=== PATIENT | male | born 1985 | race African-American/Black ===

== ENCOUNTER 2016-10-22 12:08 | Day surgery (SDC) | payer MEDICAID ==
[~2016-10-22 12:08] MED LIST: ceFAZolin 2 GM/DEXTROSE 100 ML IV ONE
[2016-10-22] MEDS ORDERED: CEFAZOLIN 2 GM/DEXTROSE/100 ML BAG IV ONE (12:21)
[2016-10-22] MEDS ORDERED: LIDOCAINE 1% 5 ML SDV ONE (12:21)
[2016-10-22] MEDS ORDERED: BUPIVACAINE 0.5% 30 ML SDV ONE (12:59)
[2016-10-22] MEDS ORDERED: LIDOCAINE 1% 5 ML SDV ID PRN (13:04)
[2016-10-22] MEDS ORDERED: LR 1,000 ML IV ONE (13:04)
[2016-10-22] MEDS ORDERED: MIDAZOLAM 2 MG/2 ML VIAL ONE (13:13)
[2016-10-22] MEDS ORDERED: PROPOFOL 200 MG/20 ML VIAL ONE ×7 (13:23→15:13)
[2016-10-22] MEDS ORDERED: fentaNYL 100 MCG/2 ML INJ ONE ×2 (13:23→13:38)
[2016-10-22] MEDS ORDERED: LIDOCAINE 2% 5 ML SDV ONE (13:31)
[2016-10-22] MEDS ORDERED: LIDOCAINE 1% 30 ML SDV ONE (13:42)
--- NOTE | 2016-10-22 17:28 | GOP ---
[f rep st] OPERATIVE REPORT DATE OF OPERATION: SURGEON: Nicole Edgar MD PREOPERATIVE DIAGNOSIS: Frostbite with necrosis of left 2nd and 3rd digits. POSTOPERATIVE DIAGNOSIS: Frostbite with necrosis of left 2nd and 3rd digits. PROCEDURE PERFORMED: Partial amputations of the 2nd and 3rd digits. FINDINGS: Necrotic soft tissue and bone to the proximal mid phalanx of both 2nd and 3rd left digits. SPECIMENS: Tissue from 2nd and 3rd left digits sent for Gram stain and culture. ESTIMATED BLOOD LOSS: 30 mL. INDICATIONS: The patient is a 31-year-old man who has suffered a 2nd episode of frostbite involving bilateral fingers and his nose. He was noted to have necrosis of the 2nd and 3rd left digits and opt ed for debridement of the necrotic tissue. DESCRIPTION OF PROCEDURE: After informed consent was obtained and preoperative antibiotics were admi nistered, the patient was taken to the operating room, placed in a supine position. Sedation was adm inistered after SCDs were placed to bilateral lower extremities. Digital blocks were performed of th e 2nd and 3rd left digits, after he was prepped and draped in a sterile fashion and after an appropri ate surgical pause, using local anesthetic. The necrotic soft tissue was debrided to the midportion of the middle phalanx, and a periosteal elevator was then used to expose the bone at these sites. Th e bone was transected using an oscillating saw. Bone wax was placed for hemostasis. Necrotic soft t issue was debrided, and V-Y skin flaps were created, using a 15 blade and the sutured in place using 3-0 Vicryl deep dermal sutures and 3-0 nylon vertical mattress sutures. Similarly, necrotic soft tis papito was debrided of the 3rd left phalanx as well, using a periosteal elevator to expose the bone of t he middle phalanx and transecting the bone using an oscillating saw. Bone wax was applied for hemost asis. Necrotic soft tissue was debrided. V-Y advancement flaps were marked and then incised using a 15 blade. These were closed using interrupted 3-0 Vicryl deep dermal sutures and 3-0 nylon vertical mattress sutures. The fingers were dressed with Xeroform and then a Matteo wrap. The patient was aw akened from sedation, and taken to the post anesthesia recovery unit. /[id number]/MODL
== END 2016-10-22 18:10 | disposition home or self-care (01) ==
LOC: FSGY 12:08
PROVIDERS: ATTEND Surgery
PROC: 0X6P0Z2 Detachment at Left Index Finger, Mid, Open Approach (ICD-10-PCS; principal; 2016-10-22 13:15)
PROC: 0X6R0Z2 Detachment at Left Middle Finger, Mid, Open Approach (ICD-10-PCS; principal; 2016-10-22 13:15)
DX: T33.532A Superficial frostbite of left finger(s), initial encounter (principal); F31.9 Bipolar disorder, unspecified; F17.210 Nicotine dependence, cigarettes, uncomplicated; X31.XXXA Exposure to excessive natural cold, initial encounter
CPT/HCPCS: J0690; J2250; J2704; J3010

== ENCOUNTER 2016-11-11 13:05 | Inpatient (IN) | payer MEDICAID ==
[2016-11-11] MEDS ORDERED: HYDROCODONE/APAP 5/325 TAB PO PRN (19:36)
[2016-11-11] MEDS ORDERED: TEMAZEPAM 15 MG CAP PO PRN (19:36)
[2016-11-11] MEDS: DOCUSATE SODIUM 100 MG CAP PO SCH (20:04)
[2016-11-11] MEDS: OXYCODONE/APAP 5/325 TAB PO PRN (20:04)
[2016-11-11] MEDS: traZODone 50 MG TAB PO SCH (20:05)
[2016-11-11] MEDS: FAMOTIDINE 20 MG TAB PO SCH (20:05)
[2016-11-11] MEDS: LITHIUM CARBONATE 300 MG CAP PO SCH (20:49)
[2016-11-12] MEDS: OXYCODONE/APAP 5/325 TAB PO PRN ×6 (00:04→22:23)
[2016-11-12] MEDS: OLANZapine DISINTEGR 10 MG TAB PO SCH (08:08)
[2016-11-12] MEDS: LITHIUM CARBONATE 300 MG CAP PO SCH ×2 (08:09→20:20)
[2016-11-12] MEDS: DOCUSATE SODIUM 100 MG CAP PO SCH ×2 (08:10→20:20)
[2016-11-12] MEDS: FAMOTIDINE 20 MG TAB PO SCH ×2 (08:10→20:20)
[2016-11-12] MEDS ORDERED: QUEtiapine FUMARATE 200 MG TAB PO SCH (09:00)
--- NOTE | 2016-11-12 09:06 | SOAPPROG ---
SOAP Progress Note Assessment/Plan: Assessment: wounds of left 2nd and 3rd digital stumps s/p partial amputations for frostbite c/b strep A soft tissue infection Plan: continue Dr. Henry perez with ID to see today crop adjuster to see regarding wound care will be very conservative with any further debridement to try and preserve finger length nonoperative daily wound care with goal of granulation and epithelialization of wounds 11/12/16 09:07 Subjective: pain controlled with Percocet tolerating a diet Objective: Vital Signs Temp Pulse Resp BP Pulse Ox 36.9 C 87 12 118/84 H 98 11/12/16 07:40 11/12/16 07:40 11/12/16 07:40 11/12/16 07:40 11/12/16 07:40 11/11/16 11/12/16 11/13/16 05:59 05:59 05:59 Intake Total 1000 Balance 1000 Physical Exam - Physical Exam General Appearance: alert Extremities: other (2nd and 3rd digital stump incisions open, surrounding skin without erythema) ICD10 Worksheet Patient Problems: Problems Problem Status Diagnosed Frostbite of both hands Acute Soft tissue infection Acute - ICD10 Problem Qualifiers (1) Frostbite of both hands (2) Soft tissue infection
--- NOTE | 2016-11-12 09:37 | GHP ---
[f rep st] HISTORY AND PHYSICAL DATE OF ADMISSION: 11/11/2016 HISTORY OF PRESENT ILLNESS: The patient is a 31-year-old man well known to me who is status post par tial amputations of the left 2nd and 3rd fingers at the mid phalanx for frostbite and associated Stre ptococcus group A soft tissue infection. He has had difficulty with regular followup wound care as nasim ibrahim has baseline psychiatric issues and is homeless. Last week he was unable to stay at the assisted in [place] and was exposed to cold again for 3 nights, noting that his stump incisions opened up. He al so reports drinking and using marijuana for pain because he ran out of pain medication. He was admit micha to the hospital for daily wound care, IV antibiotic therapy. PAST MEDICAL HISTORY: Frostbite and soft tissue infection of the 2nd and 3rd left digits as per Hist ory of Present Illness, homelessness, tobacco use, psychiatric issues although he cannot articulate w hat his exact diagnosis is. PAST SURGICAL HISTORY: Partial amputations of the 2nd and 3rd left fingers at the mid phalanges. MEDICATIONS: Augmentin 875 mg twice daily, [place] 1-2 tablets p.o. q.4 hours p.r.n. pain, Vistaril 50 mg 3 times daily, lithium 300 mg twice daily, Zyprexa 20 mg daily, Seroquel 400 mg daily, trazodone 50 mg nightly. ALLERGIES: He has no known drug allergies. SOCIAL HISTORY: He is homeless. He uses tobacco every day. He also reports using alcohol and marij uana recently for pain control. REVIEW OF SYSTEMS: He denied chest pain, shortness of breath, fevers. He complained of pain in his left 2nd and 3rd digits and open wounds there. PHYSICAL EXAM: GENERAL: He is alert, in no acute distress, nonjaundiced, nontoxic appearing. LUNGS : Clear to auscultation bilaterally. HEART: Regular rate and rhythm. EXTREMITIES: His stump inci sions of both the 2nd and 3rd left digits at the mid phalanx have come open without associated erythe ma in the surrounding skin. ASSESSMENT: Frostbite of the 2nd and 3rd left digits complicated by group A streptococcal soft tissu e infection complicated by continued cold exposure. PLAN: He will be admitted for daily wound care, IV antibiotic therapy, and Dr. Figueroa with Infectiou s Disease has been consulted regarding his open wounds and streptococcal soft tissue infection. /[id number]/MODL
--- NOTE | 2016-11-12 11:56 | PCMIDPN ---
Assessment/Plan: Wound dehiscence of 2nd and 3rd left digit s/p amputation for frostbite. No clear evidence of active infection at the time of my exam. Will discuss with Dr. Edgar, but would recommend discontinuation of antibiotics and consideration of debridement. Ideally would like labs including CMP, CBC, HIV and hepatitis screening but currently patient is refusing Subjective: HPI: 31-year-old male with a past medical history of psychiatric illness initial problems date back to mid September when he developed frostbite of his 2nd and 3rd left finger. Patient 1st presented to care on 10/05/2016 and no evidence of cellulitis existed and patient was discharged with surgical follow- up. Fingers continued to be very painful and surgical amputation was performed 10/22/2016. Patient was seen in follow-up yesterday and wound had dehisced. Patient today is a very difficult historian and uncooperative but states that wounds opened up approximately 2 days ago. Denies fevers, chills, night sweats. patient is homeless. Past medical history: Psychiatric illness specifics unknown Past surgical history: As per HPI Allergies: NKDA Medications Ancef 1 g IV Q 8, started 11/11/2016 Colace 100 mg twice daily Pepcid 20 mg p.o. twice daily Hydroxyzine 50 mg p.o. three times daily p.r.n. [place] 300 mg p. o. twice daily Zyprexa 20 mg p.o. daily Percocet 02/3252 tabs p.o. Q 4 p.r.n. Seroquel 400 mg p.o. at bedtime Trazodone 50 mg p.o. at bedtime Social history: Tobacco, alcohol and marijuana use. Remote history of heroin. Homelessness Family history: Denies diabetes, hypertension Review of systems: Pointed questions were asked essentially 10 point review of systems was negative but very difficult due to patient being uncooperative Objective: Vital Signs Temp Pulse Resp BP Pulse Ox 36.9 C 87 12 118/84 H 98 11/12/16 07:40 11/12/16 07:40 11/12/16 07:40 11/12/16 07:40 11/12/16 07:40 11/11/16 11/12/16 11/13/16 05:59 05:59 05:59 Intake Total 1000 Balance 1000 - Physical Exam General Appearance: no apparent distress, non-toxic, other (Sleepy) EENT: other (MMM), No scleral icterus, No thrush Respiratory: lungs clear Cardiac/Chest: regular rate, rhythm Extremities: other (Left 2nd and 3rd digit with wound dehiscence, 10-20% nonviable tissue, no purulence, no erythema. tenderness to palpation of the 2nd and 3rd digit; no tenderness of the left palm or wrist) Skin: No rash Neuro/Psych: other (Sleepy and generally uncooperative), No motor weakness ICD10 Worksheet Patient Problems: Problems Problem Status Diagnosed Frostbite of both hands Acute Soft tissue infection Acute
[2016-11-12 15:44] LABS: % IMMATURE GRANULYOCYTES 0.2 % (0.0-1.1); ABSOLUTE IMMATURE GRANULOCYTES 0.01 10^3/uL (0.00-0.10); ADD DIFF? NO; ADD MORPH? NO; ADD SCAN? NO; ATYPICAL LYMPHOCYTE FLAG 50 (0-99); FRAGMENT RBC FLAG 0 (0-99); HEMATOCRIT 43.4 % (40.0-51.0); HEMOGLOBIN 14.5 g/dL (13.7-17.5); LEFT SHIFT FLG 10 (0-99); LIPEMIA HEMOLYSIS FLAG 80 (0-99); MEAN CELL HEMOGLOBIN CONCENTR. 33.4 g/dL (32.4-36.7); MEAN CELL VOLUME 83.8 fL (81.5-99.8); MEAN PLATELET VOLUME 9.2 fL (8.7-11.7); PLATELET CLUMPS FLAG 0 (0-99); PLATELET COUNT 263 10^3/uL (150-400); RED BLOOD CELL COUNT 5.18 10^6/uL (4.40-6.38); RED CELL DISTRIBUTION WIDTH 13.2 % (11.5-15.2)
[2016-11-12 16:18] LABS: ALANINE AMINOTRANSFERASE 55 IU/L (21-72); ALBUMIN 3.5 g/dL (3.5-5.0); ALKALINE PHOSPHATASE 74 IU/L (38-126); ANION GAP 8 mEq/L (8-16); ASPARTATE AMINOTRANSFERASE 43 IU/L (17-59); BILIRUBIN,TOTAL 0.4 mg/dL (0.1-1.4); CALCIUM 8.8 mg/dL (8.5-10.4); CARBON DIOXIDE 25 mEq/l (22-31); CHLORIDE 107 mEq/L (97-110); CREATININE 0.8 mg/dL (0.7-1.3); GLOMERULAR FILTRATION RATE > 60; GLUCOSE 97 mg/dL (70-100); POTASSIUM 4.6 mEq/L (3.5-5.2); SODIUM 140 mEq/L (134-144); TOTAL PROTEIN 6.7 g/dL (6.3-8.2)
[2016-11-12] MEDS: QUEtiapine FUMARATE 200 MG TAB PO SCH (20:20)
[2016-11-12] MEDS: traZODone 50 MG TAB PO SCH (20:21)
[2016-11-12] MEDS: hydrOXYzine HCL 50 MG TAB PO PRN (22:24)
[2016-11-13] MEDS: OXYCODONE/APAP 5/325 TAB PO PRN ×5 (02:33→21:17)
--- NOTE | 2016-11-13 09:02 | SOAPPROG ---
SOAP Progress Note Assessment/Plan: Assessment: wounds of left 2nd and 3rd digital stumps s/p partial amputations for frostbite c/b strep A soft tissue infection Plan: continue Dr. Henry perez with ID to see today still awaiting recommendations from wound care will be very conservative with any further debridement to try and preserve finger length nonoperative daily wound care with goal of granulation and epithelialization of wounds 11/13/16 08:59 Subjective: no complaints Objective: Vital Signs Temp Pulse Resp BP Pulse Ox 37.1 C 101 H 16 121/73 H 96 11/13/16 08:32 11/13/16 08:32 11/13/16 08:32 11/13/16 08:32 11/13/16 08:32 Laboratory Results 11/12/16 15:32 11/12/16 15:32 11/12/16 11/13/16 11/14/16 05:59 05:59 05:59 Intake Total 1000 200 Balance 1000 200 Physical Exam - Physical Exam General Appearance: alert Extremities: other (dressing clean dry intact) ICD10 Worksheet Patient Problems: Problems Problem Status Diagnosed Frostbite of both hands Acute Soft tissue infection Acute - ICD10 Problem Qualifiers (1) Frostbite of both hands (2) Soft tissue infection
[2016-11-13] MEDS: DOCUSATE SODIUM 100 MG CAP PO SCH ×2 (09:59→21:18)
[2016-11-13] MEDS: FAMOTIDINE 20 MG TAB PO SCH ×2 (09:59→21:17)
[2016-11-13] MEDS: LITHIUM CARBONATE 300 MG CAP PO SCH ×3 (09:59→21:17)
[2016-11-13] MEDS: OLANZapine DISINTEGR 10 MG TAB PO SCH (10:02)
--- NOTE | 2016-11-13 11:25 | WOCRNPDOC ---
WOCRN Advanced Assessment Note - Skin Integrity Problem, Advanced Assess Left Second Finger Dressing Type: Matteo Dressing Description: Clean/Dry, Intact Exudate Amount: None Exudate Characteristic(s): None Integumentary Issue Intervention: Dressing Applied Melina Wound Tissue: Swollen Melina Wound Swelling: Moderate Wound Bed Color: Black, Red Wound Bed Constitution: Smooth Tissue, Mixed Loose & Adhered Slough/Eschar Site Measurement - Head-to-Toe Length X Width X Depth (cm): [id number] eschar Skin Integrity Problem Comment: Dried, well-adhered eschar noted throughout wound bed, with two pinpoint areas of red, dried smooth tissue along margin. Those areas of smooth tissue inidcate there could be viable tissue immediately below eschar. Melina-wound skin is intact, however entire remianing digit is swollen and painful. No appreciable warmth when compared to unaffected digits. Applied Therahoney gel to initiate autolytic debridement of this necrotic tissue , then covered w/ Tegaderm to keep site moist. Will assess site tomorrow 2/3 to monitor moisture level of wound. Left Third Finger Dressing Type: Matteo Dressing Description: Clean/Dry, Intact Exudate Amount: None Exudate Characteristic(s): None Integumentary Issue Intervention: Dressing Applied Melina Wound Tissue: Swollen, Painful/Tender Melina Wound Swelling: Moderate Wound Bed Color: Black, Red Wound Bed Constitution: Smooth Tissue, Mixed Loose & Adhered Slough/Eschar Site Odor: None Site Measurement - Head-to-Toe Length X Width X Depth (cm): 1.4cmx3.8cmx eschar Skin Integrity Problem Comment: Dried, well-adhered eschar noted, w/ pinpoint smooth tissue along inferior margin. Entire digit is swollen and tender, but not especially warm when compared to other digits. Will attempt autolytic debridement using Therahoney gel and covering w/ an occlusive dressing. Report given to bingo floater Becky.
--- NOTE | 2016-11-13 12:59 | PCMIDPN ---
Assessment/Plan: #Wound dehiscence of 2nd and 3rd left digit s/p amputation for frostbite. exam : approx 1.5 cm wound at end of L 2nd and 3rd digit with dried black superficial echar on each finger, no erythema, no purulence, no warmth. Examined patient with wound care team who will try Therahoney gel and covering w / an occlusive dressing --antibiotics discontinued as no evidence of infection --plan f/u in wound care clinic, although significant concern that patient will not follow up regularly #HIV negative/HCV + --follow up with HCV VL at outpatient Subjective: I don't want to take Seroquel, it makes me tired Objective: Vital Signs Temp Pulse Resp BP Pulse Ox 37.1 C 101 H 16 121/73 H 96 11/13/16 08:32 11/13/16 08:32 11/13/16 08:32 11/13/16 08:32 11/13/16 08:32 Laboratory Results 11/12/16 15:32 11/12/16 15:32 11/12/16 11/13/16 11/14/16 05:59 05:59 05:59 Intake Total 1000 200 Balance 1000 200 ICD10 Worksheet Patient Problems: Problems Problem Status Diagnosed Frostbite of both hands Acute Soft tissue infection Acute
[2016-11-13 13:18] LABS: HEPATITIS Bs Ab QUANT 969 mIU/mL (())
[2016-11-13] MEDS: traZODone 50 MG TAB PO SCH (21:17)
[2016-11-13] MEDS: QUEtiapine FUMARATE 200 MG TAB PO SCH (21:24)
[2016-11-14] MEDS: OXYCODONE/APAP 5/325 TAB PO PRN ×5 (01:37→18:47)
--- NOTE | 2016-11-14 08:10 | SOAPPROG ---
SOAP Progress Note Assessment/Plan: Assessment: wounds of left 2nd and 3rd digital stumps s/p partial amputations for frostbite c/b strep A soft tissue infection Plan: continue Therahoney gel for autolytic debridement of wounds per wound care no e/o persistent infection, antibiotics discontinued 11/14/16 08:08 Subjective: pain controlled Objective: Vital Signs Temp Pulse Resp BP Pulse Ox 36.9 C 93 14 138/83 H 97 11/14/16 00:00 11/14/16 00:00 11/14/16 00:00 11/14/16 00:00 11/14/16 00:00 Laboratory Results 11/12/16 15:32 11/12/16 15:32 11/13/16 11/14/16 11/15/16 05:59 05:59 05:59 Intake Total 200 300 Balance 200 300 Physical Exam - Physical Exam General Appearance: alert Extremities: other (dressings C/D/I 2nd and 3rd left stumps) ICD10 Worksheet Patient Problems: Problems Problem Status Diagnosed Frostbite of both hands Acute Soft tissue infection Acute - ICD10 Problem Qualifiers (1) Frostbite of both hands (2) Soft tissue infection
[2016-11-14] MEDS: LITHIUM CARBONATE 300 MG CAP PO SCH ×2 (08:38→20:58)
[2016-11-14] MEDS: FAMOTIDINE 20 MG TAB PO SCH ×2 (08:38→20:58)
[2016-11-14] MEDS: OLANZapine DISINTEGR 10 MG TAB PO SCH (08:38)
[2016-11-14] MEDS: DOCUSATE SODIUM 100 MG CAP PO SCH ×2 (08:38→20:58)
--- NOTE | 2016-11-14 15:59 | WOCRNPDOC ---
WOCRN Advanced Assessment Note - Skin Integrity Problem, Advanced Assess Left Second Finger Dressing Type: Matteo, Tegaderm Film, Telfa Dressing Description: Intact, Shadowed Exudate Amount: Minimal Exudate Color: Brown, Reddish/Yellow Exudate Characteristic(s): Serosanguinous Integumentary Issue Intervention: Dressing Changed [place] Wound Tissue: Macerated, Swollen, Painful/Tender [place] Wound Swelling: Moderate Wound Bed Color: Brown, Red, Yellow Wound Bed Constitution: Granulation Tissue, Smooth Tissue, Mixed Loose & Adhered Slough/Eschar Wound Edges: Irregular Site Odor: None Skin Integrity Problem Comment: Autolytic debridement w/ Therahoney effective, removing some eschar and slough from the wound. Wound bed presently 85% slough / 15% red, granulation and smooth tissues. Exudate caused some minor savanah-wound maceration. Skin prep barrier film applied to edges to protect. DC Therahoney and continue autolysis using hydrocolliod dressing instead. Left Third Finger Dressing Type: Matteo, Tegaderm Film, Telfa Dressing Description: Intact, Shadowed Exudate Amount: Moderate Exudate Color: Brown, Reddish/Yellow Exudate Characteristic(s): Serosanguinous Integumentary Issue Intervention: Dressing Changed [place] Wound Tissue: Macerated, Swollen, Painful/Tender [place] Wound Swelling: Moderate Wound Bed Color: Brown, Red, Yellow Wound Bed Constitution: Granulation Tissue, Smooth Tissue, Mixed Loose & Adhered Slough/Eschar Wound Edges: Irregular Skin Integrity Problem Comment: Autolytic debridement w/ Therahoney somewhat effective, but too moist along wound margins, as evidenced by mild maceration. Slough has softened and loosened since yesterday, and there are islands of granulating tissue evident. Attempted to remove w/ gauze, but patient reports it is too painful. Changed dressing to hydrocolliod to facilitate further autolysis.
[2016-11-14] MEDS: traZODone 50 MG TAB PO SCH (20:58)
[2016-11-14] MEDS: QUEtiapine FUMARATE 200 MG TAB PO SCH (21:05)
[2016-11-15] MEDS: OXYCODONE/APAP 5/325 TAB PO PRN ×6 (00:42→21:28)
--- NOTE | 2016-11-15 07:47 | SOAPPROG ---
SOAP Progress Note Assessment/Plan: Assessment: wounds of left 2nd and 3rd digital stumps s/p partial amputations for frostbite c/b strep A soft tissue infection Plan: dressing switched to hydrocolloid by wound RN, starting to see some removal of slough and development of granulation tissue! continue excellent wound care by wound RN 11/15/16 07:45 Subjective: tolerating a diet craving a cigarette Objective: Vital Signs Temp Pulse Resp BP Pulse Ox 37.1 C 80 13 145/93 H 96 11/15/16 07:34 11/15/16 07:34 11/15/16 07:34 11/15/16 07:34 11/15/16 07:34 Laboratory Results 11/12/16 15:32 11/12/16 15:32 11/14/16 11/15/16 11/16/16 05:59 05:59 05:59 Intake Total 300 0 Balance 300 0 Physical Exam - Physical Exam General Appearance: alert Extremities: other (dressing C/D/I, 15% pink tissue now (per wound RN)) ICD10 Worksheet Patient Problems: Problems Problem Status Diagnosed Frostbite of both hands Acute Soft tissue infection Acute - ICD10 Problem Qualifiers (1) Frostbite of both hands (2) Soft tissue infection
[2016-11-15] MEDS: OLANZapine DISINTEGR 10 MG TAB PO SCH (08:59)
[2016-11-15] MEDS: LITHIUM CARBONATE 300 MG CAP PO SCH ×2 (08:59→21:27)
[2016-11-15] MEDS: FAMOTIDINE 20 MG TAB PO SCH ×2 (08:59→21:28)
[2016-11-15] MEDS: DOCUSATE SODIUM 100 MG CAP PO SCH ×2 (08:59→21:28)
[2016-11-15] MEDS: traZODone 50 MG TAB PO SCH (21:28)
[2016-11-15] MEDS: QUEtiapine FUMARATE 200 MG TAB PO SCH (21:28)
[2016-11-16] MEDS: hydrOXYzine HCL 50 MG TAB PO PRN (01:27)
[2016-11-16] MEDS: OXYCODONE/APAP 5/325 TAB PO PRN ×5 (01:27→20:18)
[2016-11-16] MEDS: DOCUSATE SODIUM 100 MG CAP PO SCH ×2 (07:13→20:19)
[2016-11-16] MEDS: LITHIUM CARBONATE 300 MG CAP PO SCH ×2 (07:13→20:18)
[2016-11-16] MEDS: OLANZapine DISINTEGR 10 MG TAB PO SCH (07:14)
[2016-11-16] MEDS: FAMOTIDINE 20 MG TAB PO SCH ×2 (07:14→20:19)
--- NOTE | 2016-11-16 08:34 | SOAPPROG ---
SOAP Progress Note Assessment/Plan: Assessment: wounds of left 2nd and 3rd digital stumps s/p partial amputations for frostbite c/b strep A soft tissue infection Plan: continue hydrocolloid, per credit risk management director continue analgesia 11/16/16 08:33 Subjective: c/o cough and congestion Objective: Vital Signs Temp Pulse Resp BP Pulse Ox 37.1 C 104 H 15 139/95 H 96 11/16/16 08:00 11/16/16 08:00 11/16/16 08:00 11/16/16 08:00 11/16/16 08:00 Laboratory Results 11/12/16 15:32 11/12/16 15:32 11/15/16 11/16/16 11/17/16 05:59 05:59 05:59 Intake Total 0 Balance 0 Physical Exam - Physical Exam General Appearance: alert Extremities: other (dressings C/D/I) ICD10 Worksheet Patient Problems: Problems Problem Status Diagnosed Frostbite of both hands Acute Soft tissue infection Acute - ICD10 Problem Qualifiers (1) Frostbite of both hands (2) Soft tissue infection
--- NOTE | 2016-11-16 11:13 | SOAPPROG ---
SOAP Progress Note Assessment/Plan: Assessment: wounds of left 2nd and 3rd digital stumps s/p partial amputations for frostbite c/b strep A soft tissue infection Plan: discussed the possible need for sharp but superficial debridement with Deandre if he desires granulation and epithelialization to proceed more quickly we will continue with hydrocolloid for now and a "crust of zinc oxide" to cover the surrounding skin and prevent maceration from the weeping created by autolytic debridement Deandre would like to get some sun on his face and may sit outside on the 3rd floor balcony or at the front entrance today I've encouraged him not to smoke tobacco if he goes outside; he knows this is a nonsmoking campus 11/16/16 11:10 Objective: Vital Signs Temp Pulse Resp BP Pulse Ox 37.1 C 104 H 15 139/95 H 96 11/16/16 08:00 11/16/16 08:00 11/16/16 08:00 11/16/16 08:00 11/16/16 08:00 Laboratory Results 11/12/16 15:32 11/12/16 15:32 11/15/16 11/16/16 11/17/16 05:59 05:59 05:59 Intake Total 0 Balance 0 Physical Exam - Physical Exam Extremities: other (granulating base of left 2nd & 3rd stumps with superficial necrotic tissue centrally) ICD10 Worksheet Patient Problems: Problems Problem Status Diagnosed Frostbite of both hands Acute Soft tissue infection Acute - ICD10 Problem Qualifiers (1) Frostbite of both hands (2) Soft tissue infection
--- NOTE | 2016-11-16 11:38 | WOCRNPDOC ---
[facility] Advanced Assessment Note - Skin Integrity Problem, Advanced Assess Left Second Finger Dressing Type: Hydrocolloid, Matteo Dressing Description: Intact Exudate Amount: Moderate Exudate Color: Red, Brown Exudate Characteristic(s): Cloudy (r/t hydrocolloid dressing. No purulence.) Integumentary Issue Intervention: Dressing Changed Melina Wound Tissue: Macerated, Swollen Melina Wound Swelling: Moderate Wound Bed Color: Red, Yellow, [place] Wound Bed Constitution: Granulation Tissue (30%), Mixed Loose & Adhered Slough/ Eschar (70%) Site Odor: None Skin Integrity Problem Comment: Assessed wounds w/ Dr. Edgar. Autolytic debridement effective, w/ scattered areas of granulation tissue emerging. The remaining necrosis is well-adhered, a mixture of yellow/schulte slough, and patient is too tender to have this tissue removed at the bedside w/ gauze. Melina- wound tissue continues to show signs of maceration r/t moisture from exudate. Cleansed site w/ Vashe, soaking gauze in solution and applying it to the wound for 5 minutes. Applied zinc oxide powder and skin prep crust to the melina-wound skin in an attempt to form a moisture barrier against exudate. Applied new hydrocolloid dressing, and secured w/ Matteo. Left Third Finger Dressing Type: Hydrocolloid, Mateto Dressing Description: Intact Exudate Amount: Moderate Exudate Color: Red, Brown Exudate Characteristic(s): Cloudy (r/t hydrocolloid dressing), Serosanguinous Integumentary Issue Intervention: Dressing Changed Melina Wound Tissue: Macerated, Swollen Melina Wound Swelling: Moderate Wound Bed Color: Red, Yellow, [place] Wound Bed Constitution: Granulation Tissue (25%), Mixed Loose & Adhered Slough/ Eschar (75%) Site Odor: None Skin Integrity Problem Comment: Increased areas of granulation noted in wound since previous assessment on 11/14. There remains some well-adhered slough, which I was unable to remove due to patient's reports of severe pain when site is cleansed. Melina-wound tissue remains friable r/t maceration from exudate. Assessed site w/ Dr. Edgar, who would like to continue w/ autolytic debridment. Cleansed site w/ Vashe, soaking gauze in solution and applying it to the wound for 5 minutes. Applied zinc oxide powder and skin prep crust to the melina-wound skin in an attempt to form a moisture barrier against exudate. Applied new hydrocolloid dressing, and secured w/ Matteo.
[2016-11-16] MEDS: traZODone 50 MG TAB PO SCH (20:18)
[2016-11-16] MEDS: QUEtiapine FUMARATE 200 MG TAB PO SCH (20:19)
[2016-11-17] MEDS: OXYCODONE/APAP 5/325 TAB PO PRN ×6 (02:03→23:17)
[2016-11-17] MEDS: FAMOTIDINE 20 MG TAB PO SCH ×2 (09:31→21:07)
[2016-11-17] MEDS: LITHIUM CARBONATE 300 MG CAP PO SCH ×2 (09:31→21:06)
[2016-11-17] MEDS: OLANZapine DISINTEGR 10 MG TAB PO SCH (09:31)
[2016-11-17] MEDS: DOCUSATE SODIUM 100 MG CAP PO SCH ×2 (09:31→21:07)
--- NOTE | 2016-11-17 11:34 | WOCRNPDOC ---
WOCRN Advanced Assessment Note - Skin Integrity Problem, Advanced Assess Left Second Finger Dressing Type: Hydrocolloid Dressing Description: Clean/Dry, Intact Exudate Amount: Moderate Exudate Characteristic(s): Serosanguinous, Thick Integumentary Issue Intervention: Dressing Changed Wound Bed Color: Black, Brown, Red, Yellow, [place], White Wound Bed Constitution: Granulation Tissue (40%), Smooth Tissue (20%), Mixed Loose & Adhered Slough/Eschar (40%) Wound Edges: Attached Site Odor: Strong, Foul, Pungent Site Measurement - Head-to-Toe Length X Width X Depth (cm): 2.5x2.5x0.3 Skin Integrity Problem Comment: Strong odor of liquified necrosis present upon removal of hydrocolloid along with 3-4 ml of drainage trapped under dressing. Soaked wound in Vashe solution for 7 min. Applied skin prep savanah wound and silvasorb to wound bed. Covered with non border foam. Query pt to OR tomorrow for debridement? Cesia BARRIGA in room. Left Third Finger Dressing Type: Hydrocolloid Dressing Description: Clean/Dry, Intact Exudate Amount: Minimal Exudate Characteristic(s): Serosanguinous, Thick Integumentary Issue Intervention: Dressing Changed Wound Bed Color: Black, Brown, Red, Yellow, [place] Wound Bed Constitution: Granulation Tissue (35%), Mixed Loose & Adhered Slough/ Eschar (65%) Site Odor: Moderate, Foul, Pungent Site Measurement - Head-to-Toe Length X Width X Depth (cm): 2.5x1.5x0.3 Skin Integrity Problem Comment: Strong odor of liquified necrosis present upon removal of hydrocolloid along with 3-4 ml of drainage trapped under dressing. Soaked wound in Vashe solution for 7 min. Applied skin prep savanah wound and silvasorb to wound bed. Covered with allevyn gentle light dressing and tape. Query pt to OR tomorrow for debridement? Cesia BARRIGA in room.
[2016-11-17] MEDS: GUAIFENESIN/DM 10 ML UDCUP PO PRN (18:19)
--- NOTE | 2016-11-17 19:45 | SOAPPROG ---
SOAP Progress Note Assessment/Plan: Assessment: wounds of left 2nd and 3rd digital stumps s/p partial amputations for frostbite c/b strep A soft tissue infection Plan: to OR tomorrow for superficial debridement 11/17/16 19:44 Subjective: tolerating a diet tolerating dressing changes Objective: Vital Signs Temp Pulse Resp BP Pulse Ox 36.8 C 97 14 117/91 H 98 11/17/16 15:49 11/17/16 15:49 11/17/16 15:49 11/17/16 15:49 11/17/16 15:49 Laboratory Results 11/12/16 15:32 11/12/16 15:32 Physical Exam - Physical Exam General Appearance: alert ICD10 Worksheet Patient Problems: Problems Problem Status Diagnosed Frostbite of both hands Acute Soft tissue infection Acute - ICD10 Problem Qualifiers (1) Frostbite of both hands (2) Soft tissue infection
[2016-11-17] MEDS: QUEtiapine FUMARATE 200 MG TAB PO SCH (21:07)
[2016-11-17] MEDS: traZODone 50 MG TAB PO SCH (21:07)
[2016-11-18] MEDS: OXYCODONE/APAP 5/325 TAB PO PRN ×5 (04:11→21:52)
[2016-11-18] MEDS ORDERED: BUPIVACAINE 0.5% 30 ML SDV ONE (07:12)
[2016-11-18] MEDS ORDERED: LIDOCAINE 1% 5 ML SDV ONE (07:36)
[2016-11-18] MEDS: LITHIUM CARBONATE 300 MG CAP PO SCH ×2 (09:04→21:52)
[2016-11-18] MEDS: OLANZapine DISINTEGR 10 MG TAB PO SCH (09:05)
[2016-11-18] MEDS: DOCUSATE SODIUM 100 MG CAP PO SCH ×2 (09:05→21:52)
[2016-11-18] MEDS: FAMOTIDINE 20 MG TAB PO SCH ×2 (09:05→21:53)
[2016-11-18] MEDS: hydrOXYzine HCL 50 MG TAB PO PRN (09:13)
[2016-11-18] MEDS: GUAIFENESIN/DM 10 ML UDCUP PO PRN ×2 (12:21→17:51)
--- NOTE | 2016-11-18 16:02 | GOP ---
[f rep st] OPERATIVE REPORT DATE OF OPERATION: SURGEON: Nicole Edgar MD PREOPERATIVE DIAGNOSIS: Soft tissue necrosis of skin flaps of left 2nd and 3rd digits secondary to c old exposure and inability to follow up for wound care. POSTOPERATIVE DIAGNOSIS: Soft tissue necrosis of skin flaps of left 2nd and 3rd digits secondary to cold exposure and inability to follow up for wound care. PROCEDURE PERFORMED: Superficial debridement of soft tissue necrosis of 2nd and 3rd left digits. FINDINGS: Superficial necrosis of the left 2nd and 3rd digital stumps with healthy granulation tissu e underneath, however, the concern is that he has exposed bone underneath centrally. SPECIMENS: None. ESTIMATED BLOOD LOSS: 10 mL. INDICATIONS: The patient is a 31-year-old man who is status post partial amputations of the left 2nd and 3rd fingers at the mid phalanx for frostbite and associated streptococcus group A soft tissue in fection. He has had difficulty with regular followup for wound care, as he has baseline psychiatric illness, and is also homeless. Last week, he was unable to stay at the halfway in [place], and was ex posed to cold again for 3 nights, noting stump incisions had opened up. He also reported drinking an d using marijuana for pain, after he ran out of pain medication. He was admitted to the hospital for daily wound care and IV antibiotic therapy. The IV antibiotic therapy was discontinued when it was determined he did not have a persistent soft tissue infection. Autolytic dressings were applied by [facility] wound care team in the hopes that some of the superficial soft tissue necrosis could be debrided n onoperatively, however, this will take quite some time, and he opted for sharp debridement of the sup erficial necrosis of the left 2nd and 3rd stumps. He initially opted for doing this under anesthesia , however, today in the preoperative area, he became agitated and anxious, and refused IV placement, refused surgery under anesthesia, and returned back upstairs to his room on the 3rd floor. After dis cussing the need for sharp debridement, he opted for superficial debridement of the necrotic tissue u nder local anesthesia. DESCRIPTION OF PROCEDURE: After the area was prepped and draped sterilely, nerve blocks were perform ed for the left 2nd and 3rd digits using lidocaine. Once adequate local anesthesia was administered, the wound beds were debrided of superficial sloughing necrotic tissue, down to both healthy granulat ion tissue and, unfortunately, centrally to bone. Thrombix was applied to both wound beds, and the w ound beds were dressed with Matteo wrap. /[id number]/MODL
[2016-11-18] MEDS: traZODone 50 MG TAB PO SCH (21:53)
[2016-11-18] MEDS: QUEtiapine FUMARATE 200 MG TAB PO SCH (21:53)
[2016-11-19] MEDS: OXYCODONE/APAP 5/325 TAB PO PRN ×5 (02:01→19:31)
[2016-11-19] MEDS: FAMOTIDINE 20 MG TAB PO SCH ×2 (09:05→19:31)
[2016-11-19] MEDS: DOCUSATE SODIUM 100 MG CAP PO SCH ×2 (09:05→19:31)
[2016-11-19] MEDS: LITHIUM CARBONATE 300 MG CAP PO SCH ×2 (09:06→19:32)
[2016-11-19] MEDS: OLANZapine DISINTEGR 10 MG TAB PO SCH (09:07)
--- NOTE | 2016-11-19 10:33 | WOCRNPDOC ---
WOCRN Advanced Assessment Note - Skin Integrity Problem, Advanced Assess Left Second Finger Dressing Type: Matteo, Thrombix Dressing Description: Clean/Dry, Intact Exudate Amount: Scant Exudate Characteristic(s): Bloody Integumentary Issue Intervention: Dressing Changed Melina Wound Tissue: Swollen Melina Wound Swelling: Moderate Wound Bed Color: Yellow Wound Bed Constitution: Smooth Tissue, Subcutaneous Fat Wound Edges: Attached Skin Integrity Problem Comment: Dressings soaked in sterile water and removed by patient successfully. 50 mg Amniofill applied to wound bed. Covered with mepitel, secured with steri strips. Covered with hydrofera blue ready, a piece of hydrocolloid over the top of the hydrofera blue ready and then secured with tape. Dressing to stay in place for [address] Figueroa visualized wounds. Report given to Dr. Edgar. Jaylon JACOBO in room for care. Left Third Finger Dressing Type: Matteo, Thrombix Dressing Description: Clean/Dry, Intact Exudate Amount: Scant Exudate Characteristic(s): Bloody Integumentary Issue Intervention: Dressing Changed Melina Wound Swelling: Severe Wound Bed Color: [place], Yellow Wound Bed Constitution: Smooth Tissue, Subcutaneous Fat Skin Integrity Problem Comment: Dressings soaked in sterile water and removed by patient successfully. 50 mg Amniofill applied to wound bed. Covered with mepitel, secured with steri strips. Covered with hydrofera blue ready, a piece of hydrocolloid over the top of the hydrofera blue ready and then secured with tape. Dressing to stay in place for [address] Figueroa visualized wounds. Report given to Dr. Edgar.
--- NOTE | 2016-11-19 10:48 | SOAPPROG ---
SOAP Progress Note Assessment/Plan: Assessment: wounds of left 2nd and 3rd digital stumps s/p partial amputations for frostbite c/b strep A soft tissue infection Plan: continue wound care per wound care team current dressing will be on for 5 days 11/19/16 10:46 Subjective: left OCC yesterday, but allowed for debridement on the floor using local Objective: Vital Signs Temp Pulse Resp BP Pulse Ox 37.1 C 86 14 128/81 H 96 11/19/16 08:00 11/19/16 08:00 11/19/16 08:00 11/19/16 08:00 11/19/16 08:00 Laboratory Results 11/12/16 15:32 11/12/16 15:32 Physical Exam - Physical Exam General Appearance: alert Extremities: other (wound beds granulating with no residual necrotic tissue) ICD10 Worksheet Patient Problems: Problems Problem Status Diagnosed Frostbite of both hands Acute Soft tissue infection Acute - ICD10 Problem Qualifiers (1) Frostbite of both hands (2) Soft tissue infection
--- NOTE | 2016-11-19 11:24 | PCMIDPN ---
Assessment/Plan: #31 R handed man with wound dehiscence of left 2nd and 3rd digit s/p amputation for frostbite s/p debridement 11/18 exam: Gen: Nontoxic, cheerful, cooperative: Ext approx 1.5 cm wound at end of L 2nd and 3rd digit with healthy appearing tissue post debridement, no erythema, no purulence, no warmth. Examined patient with wound care --continue off antibiotics, no evidence of infection --will follow on an as needed basis #HIV negative/HCV + --follow up with HCV VL at outpatient Objective: Vital Signs Temp Pulse Resp BP Pulse Ox 37.1 C 86 14 128/81 H 96 11/19/16 08:00 11/19/16 08:00 11/19/16 08:00 11/19/16 08:00 11/19/16 08:00 Laboratory Results 11/12/16 15:32 11/12/16 15:32 ICD10 Worksheet Patient Problems: Problems Problem Status Diagnosed Frostbite of both hands Acute Soft tissue infection Acute
[2016-11-19] MEDS: GUAIFENESIN/DM 10 ML UDCUP PO PRN (17:41)
[2016-11-19] MEDS: traZODone 50 MG TAB PO SCH (19:31)
[2016-11-19] MEDS: QUEtiapine FUMARATE 200 MG TAB PO SCH (19:32)
[2016-11-20] MEDS: OXYCODONE/APAP 5/325 TAB PO PRN ×5 (02:49→19:41)
[2016-11-20] MEDS: FAMOTIDINE 20 MG TAB PO SCH ×2 (07:50→19:42)
[2016-11-20] MEDS: LITHIUM CARBONATE 300 MG CAP PO SCH ×2 (07:50→19:42)
[2016-11-20] MEDS: DOCUSATE SODIUM 100 MG CAP PO SCH ×2 (07:50→19:42)
[2016-11-20] MEDS: OLANZapine DISINTEGR 10 MG TAB PO SCH (07:51)
[2016-11-20] MEDS: GUAIFENESIN/DM 10 ML UDCUP PO PRN ×2 (09:35→13:34)
--- NOTE | 2016-11-20 10:39 | SOAPPROG ---
SOAP Progress Note Assessment/Plan: Assessment: wounds of left 2nd and 3rd digital stumps s/p partial amputations for frostbite c/b strep A soft tissue infection Plan: continue wound care per wound care team current dressing day 211/20/16 10:39 Subjective: tolerating a diet pain controlled Objective: Vital Signs Temp Pulse Resp BP Pulse Ox 37.3 C 75 16 138/85 H 97 11/20/16 07:50 11/20/16 07:50 11/20/16 07:50 11/20/16 07:50 11/20/16 07:50 Laboratory Results 11/12/16 15:32 11/12/16 15:32 Physical Exam - Physical Exam General Appearance: alert Extremities: other (dressing C/D/I) ICD10 Worksheet Patient Problems: Problems Problem Status Diagnosed Frostbite of both hands Acute Soft tissue infection Acute - ICD10 Problem Qualifiers (1) Frostbite of both hands (2) Soft tissue infection
[2016-11-20] MEDS: QUEtiapine FUMARATE 200 MG TAB PO SCH (19:42)
[2016-11-20] MEDS: traZODone 50 MG TAB PO SCH (19:42)
[2016-11-21] MEDS: OXYCODONE/APAP 5/325 TAB PO PRN ×5 (03:15→20:41)
[2016-11-21] MEDS: GUAIFENESIN/DM 10 ML UDCUP PO PRN (07:28)
[2016-11-21] MEDS: DOCUSATE SODIUM 100 MG CAP PO SCH ×2 (07:30→20:41)
[2016-11-21] MEDS: OLANZapine DISINTEGR 10 MG TAB PO SCH (07:30)
[2016-11-21] MEDS: FAMOTIDINE 20 MG TAB PO SCH ×2 (07:31→20:41)
[2016-11-21] MEDS: LITHIUM CARBONATE 300 MG CAP PO SCH ×2 (07:31→20:41)
--- NOTE | 2016-11-21 10:39 | SOAPPROG ---
SOAP Progress Note Assessment/Plan: Assessment: wounds of left 2nd and 3rd digital stumps s/p partial amputations for frostbite c/b strep A soft tissue infection Plan: continue wound care per wound care team, day 3/5 of current dressing outer dressing replaced at Deandre's request 11/21/16 10:37 Subjective: tolerating a diet ambulating has "cabin fever" Objective: Vital Signs Temp Pulse Resp BP Pulse Ox 36.7 C 87 18 129/91 H 98 11/21/16 08:21 11/21/16 08:21 11/21/16 08:21 11/21/16 08:21 11/21/16 08:21 Laboratory Results 11/12/16 15:32 11/12/16 15:32 Physical Exam - Physical Exam Extremities: other (no erythema of 2nd and 3rd left stumps, dressing intact) ICD10 Worksheet Patient Problems: Problems Problem Status Diagnosed Frostbite of both hands Acute Soft tissue infection Acute - ICD10 Problem Qualifiers (1) Frostbite of both hands (2) Soft tissue infection
[2016-11-21] MEDS ORDERED: OXYCODONE/APAP 5/325 TAB PO PRN (20:09)
[2016-11-21] MEDS: traZODone 50 MG TAB PO SCH (20:41)
[2016-11-21] MEDS: QUEtiapine FUMARATE 200 MG TAB PO SCH (20:42)
[2016-11-22] MEDS: OXYCODONE/APAP 5/325 TAB PO PRN ×6 (01:40→21:47)
[2016-11-22] MEDS: DOCUSATE SODIUM 100 MG CAP PO SCH ×2 (08:02→21:47)
[2016-11-22] MEDS: LITHIUM CARBONATE 300 MG CAP PO SCH ×2 (08:02→21:11)
[2016-11-22] MEDS: OLANZapine DISINTEGR 10 MG TAB PO SCH (08:02)
[2016-11-22] MEDS: FAMOTIDINE 20 MG TAB PO SCH ×2 (08:03→21:10)
--- NOTE | 2016-11-22 10:55 | SOAPPROG ---
SOAP Progress Note Assessment/Plan: Assessment: wounds of left 2nd and 3rd digital stumps s/p partial amputations for frostbite c/b strep A soft tissue infection Plan: continue wound care per wound care team, day 4/5 of current dressing 11/22/16 10:53 Subjective: tolerating a diet pain controlled ambulating Objective: Vital Signs Temp Pulse Resp BP Pulse Ox 37.3 C 104 H 18 126/94 H 98 11/21/16 22:40 11/21/16 22:40 11/21/16 22:40 11/21/16 22:40 11/21/16 22:40 Laboratory Results 11/12/16 15:32 11/12/16 15:32 Physical Exam - Physical Exam General Appearance: alert Extremities: other (dressing clean/dry/intact) ICD10 Worksheet Patient Problems: Problems Problem Status Diagnosed Frostbite of both hands Acute Soft tissue infection Acute - ICD10 Problem Qualifiers (1) Frostbite of both hands (2) Soft tissue infection
[2016-11-22] MEDS: QUEtiapine FUMARATE 200 MG TAB PO SCH (21:11)
[2016-11-22] MEDS: hydrOXYzine HCL 50 MG TAB PO PRN (21:46)
[2016-11-22] MEDS: traZODone 50 MG TAB PO SCH (21:47)
[2016-11-23] MEDS: OXYCODONE/APAP 5/325 TAB PO PRN ×6 (01:46→23:15)
[2016-11-23] MEDS: OLANZapine DISINTEGR 10 MG TAB PO SCH (10:06)
[2016-11-23] MEDS: LITHIUM CARBONATE 300 MG CAP PO SCH ×2 (10:07→20:44)
[2016-11-23] MEDS: FAMOTIDINE 20 MG TAB PO SCH ×2 (10:07→20:45)
[2016-11-23] MEDS: DOCUSATE SODIUM 100 MG CAP PO SCH ×2 (10:07→20:45)
--- NOTE | 2016-11-23 10:14 | SOAPPROG ---
SOAP Progress Note Assessment/Plan: Assessment: wounds of left 2nd and 3rd digital stumps s/p partial amputations for frostbite c/b strep A soft tissue infection Plan: appreciate wound care, continue dressings per their recs will likely be discharged [facility] with follow-up at wound care clinic 11/23/16 10:11 Subjective: pain controlled dressings slipped off in shower Objective: Vital Signs Temp Pulse Resp BP Pulse Ox 37.2 C 81 20 133/99 H 98 11/23/16 08:00 11/23/16 08:00 11/23/16 08:00 11/23/16 08:00 11/23/16 08:00 Laboratory Results 11/12/16 15:32 11/12/16 15:32 Physical Exam - Physical Exam General Appearance: alert Extremities: other (granulating well, even a tiny bit over bone) ICD10 Worksheet Patient Problems: Problems Problem Status Diagnosed Frostbite of both hands Acute Soft tissue infection Acute - ICD10 Problem Qualifiers (1) Frostbite of both hands (2) Soft tissue infection
--- NOTE | 2016-11-23 11:26 | WOCRNPDOC ---
PAULO Advanced Assessment Note - Skin Integrity Problem, Advanced Assess Left Second Finger Dressing Type: Adaptic Touch, Hydrofera Blue Ready, Matteo Dressing Description: Not Intact (patient removed) Exudate Amount: Scant Exudate Color: Reddish/Yellow Exudate Characteristic(s): Serosanguinous Integumentary Issue Intervention: Dressing Applied, Hydrogel Applied Melina Wound Tissue: Swollen Melina Wound Swelling: Moderate Wound Bed Color: Red, White Wound Bed Constitution: Granulation Tissue, Smooth Tissue, Bone Wound Edges: Epithelizing Site Odor: Slight Skin Integrity Problem Comment: Patient had application of Amniofill on 11/19, and was instructed to leave dressing in place until 11/23. Wound care received consult request today (11/23) because patient had removed dressing and nursing wanted instruction and support regarding his dressings. Site assessed with Dr. Edgar at the bedside. Wound is significantly improved, w/ only scattered trace slough noted. There is granulation (20%) and smooth tissue (75%) evident in the wound bed, w/ bone visible medially (5%). Margins of wound are chandrakant, and melina-wound swelling is decreased since previous assessment. Dressing order changed to included collagen. Report given to otolaryngology repNITHYA Cutler. Left Third Finger Dressing Type: Hydrofera Blue Ready, [place] Dressing Description: Not Intact Exudate Amount: Minimal Exudate Color: Reddish/Yellow Exudate Characteristic(s): Serosanguinous Integumentary Issue Intervention: Dressing Applied, Hydrogel Applied Melina Wound Tissue: Macerated (mild), Swollen Melina Wound Swelling: Moderate Wound Bed Color: Red, Yellow, White Wound Bed Constitution: Granulation Tissue, Smooth Tissue, Bone, Mixed Loose & Adhered Slough/Eschar Wound Edges: Epithelizing Site Odor: Slight Skin Integrity Problem Comment: Melina-wound tissue moderately macerated, I suspect due to dressing becoming wet during shower. Moist desquamation observed along proximal phalanx. Wound bed is vastly improved since previous assessment with granulation (20%) and smooth tissue (60%) noted, adhered slough along medial margin (15%), and bone visible medially (5%). Wound margins are beginning to contract, and there is some epithelialization along the lateral margin. Slight odor detected, so both digits were cleansed using a 5-minute application of Vashe-soaked gauze. Changed dressing order to include collagen. Report given to otolaryngology repNITHYA Cutler.
[2016-11-23 17:00] VITALS: RESP 18
[2016-11-23] MEDS: hydrOXYzine HCL 50 MG TAB PO PRN (20:44)
[2016-11-23] MEDS: QUEtiapine FUMARATE 200 MG TAB PO SCH (20:44)
[2016-11-23] MEDS: traZODone 50 MG TAB PO SCH (20:44)
[2016-11-23 23:01] VITALS: O2SAT 97
[2016-11-24] MEDS: OXYCODONE/APAP 5/325 TAB PO PRN ×2 (04:33→11:16)
[2016-11-24] MEDS: OLANZapine DISINTEGR 10 MG TAB PO SCH (08:35)
[2016-11-24] MEDS: DOCUSATE SODIUM 100 MG CAP PO SCH (08:36)
[2016-11-24] MEDS: FAMOTIDINE 20 MG TAB PO SCH (08:36)
[2016-11-24] MEDS: LITHIUM CARBONATE 300 MG CAP PO SCH (08:36)
[2016-11-24 08:39] VITALS: BP 144/87; PULSE 88; TEMP 98.2
--- NOTE | 2016-11-24 13:39 | GDS ---
[f rep st] DISCHARGE SUMMARY ADMISSION DIAGNOSIS: Frostbite and soft tissue infection of left 2nd and 3rd digits. PROCEDURES: Bedside debridement under local anesthesia on 11/18/2016. HISTORY OF PRESENT ILLNESS AND HOSPITAL COURSE: The patient is a 31-year-old man, who is status post partial amputations of the left 2nd and 3rd fingers at the mid phalanx for frostbite and an associat ed Streptococcus group A soft tissue infection. He has had difficulty with regular followup wound ca re as he has baseline psychiatric issues and is homeless. The week prior to admission, he was unable to stay at the half-way in [place] and was exposed to cold again for 3 nights, noting that his stump i ncisions opened up. He reported drinking and using marijuana for pain because he ran out of pain [employer]. He was admitted to the hospital for daily wound care and to avoid further exposure to cold. Though he had some superficial necrosis noted at the wounds of his stumps, he deferred any surgical debridement initially, requesting autolytic debridement with dressings. Wound Care was consulted to assist with wound care management. Infectious Disease was consulted and noted no evidence of persis tent infection, recommending no further antibiotic therapy. On the , he opted for some sharp beds serina debridement of the necrosis using local anesthetic, given that the autolytic debridement with richard ssings would take quite some time. Following the debridement, he was noted to have very clean based, granulating wounds without any further necrosis noted. On the day of discharge, he has clean wounds . His pain is controlled with oral pain medication. He will be discharged with instructions to foll ow up with both Dr. Edgar and the [facility] for regular wound care. DISCHARGE MEDICATIONS: Percocet 5/325 mg 1-2 tablets p.o. q.4 hours p.r.n. pain, Colace 100 mg p.o. b.i.d., oxycodone CR 10 mg p.o. b.i.d.. He will also continue his home medications, which include li thium 600 mg twice daily, Zyprexa 20 mg daily, Seroquel 400 mg nightly, Vistaril 50 mg t.i.d., trazod one 50 mg nightly. /[id number]/MODL
--- NOTE | 2016-11-27 09:41 | PQFORM ---
PHYSICIAN QUERY FORM Needs Your Response This query form is being sent to you to assure this patient record is coded properly. Please respond to the question below: ESTIMATION MANAGER QUESTION: Dr. Edgar, The use of the term "sharp debridement" is used throughout the chart on this patient. Does this mean Excisional debridement? Yes__excisional debridement No Other Clinically Undetermined Many thanks, ISAÍAS Vasquez [facility]/Coding Department INSTRUCTIONS FOR RESPONSE: Answer question by clicking on the "Edit Document" button. Move cursor to area below the stars. When complete, hit "Save." Click on the "Sign" button, then click "Sign" again. Type in your PIN and hit "Enter." MTDD
== END 2016-11-24 12:13 | disposition home or self-care (01) | DRG 513 ==
LOC: F3E 19:01
PROVIDERS: ADMIT Surgery; ATTEND Surgery
PROC: 0JBK0ZZ Excision of Left Hand Subcutaneous Tissue and Fascia, Open Approach (ICD-10-PCS; principal; 2016-11-18)
DX: T87.52 Necrosis of amputation stump, left upper extremity (principal); T87.81 Dehiscence of amputation stump; T33.532A Superficial frostbite of left finger(s), initial encounter; B95.0 Streptococcus, group A, as the cause of diseases classified elsewhere; X31.XXXA Exposure to excessive natural cold, initial encounter; F17.210 Nicotine dependence, cigarettes, uncomplicated; F12.90 Cannabis use, unspecified, uncomplicated; Z89.022 Acquired absence of left finger(s); Z59.0 Homelessness
CPT/HCPCS: 86704-90; 97110-GO; 97165-GO; 97530-GO; G0472; J0690